=== PATIENT | male | born 1970 | race Caucasian/White ===

== ENCOUNTER 2021-12-18 13:25 | Emergency (ER) | payer OTHER ==
[2021-12-18] MEDS ORDERED: METHOCARBAMOL 500 MG TABLET PO ONE (13:47)
[2021-12-18] MEDS ORDERED: KETOROLAC TROMETHAMINE 30 MG/1 ML VIAL IM ONE (13:48)
[2021-12-18] MEDS ORDERED: LIDOCAINE 5% TOPICAL PATCH TP ONE (13:48)
[2021-12-18 13:54] VITALS: BP 142/98; PULSE 90; RESP 16; TEMP 98; BMI 28.7
[2021-12-18] MEDS ORDERED: LIDOCAINE 5% TOPICAL PATCH ONE (14:22)
[2021-12-18] MEDS ORDERED: KETOROLAC TROMETHAMINE 30 MG/1 ML VIAL ONE (14:22)
[2021-12-18] MEDS ORDERED: METHOCARBAMOL 500 MG TABLET ONE (14:22)
[2021-12-18] MEDS ORDERED: IBUPROFEN 400 MG TABLET (FP) PO ONE (14:54)
[2021-12-18] MEDS ORDERED: ACETAMINOPHEN 325 MG TABLET (FP) PO ONE (14:54)
[2021-12-18] MEDS ORDERED: LIDOCAINE PATCH REMOVAL MC SCH (22:00)
== END 2021-12-18 15:21 | disposition home or self-care (01) ==
LOC: FER 13:25
PROC: 3E0233Z Introduction of Anti-inflammatory into Muscle, Percutaneous Approach (ICD-10-PCS; principal; 2021-12-18)
DX: S70.01XA Contusion of right hip, initial encounter (principal); W01.0XXA Fall on same level from slipping, tripping and stumbling without subsequent striking against object, initial encounter
CPT/HCPCS: 73502-TC-LT-FY; 99284-25